=== PATIENT | female | born 1945 | race Caucasian/White ===

== ENCOUNTER 2017-11-07 10:25 | Emergency (ER) | payer OTHER ==
[~2017-11-07] VITALS: Ht 147.3 cm; Wt 90.3 kg
[~2017-11-07 10:25] MED LIST: GLUCOPHAGE XR500 MG; HYZAAR 100/25 T1 TAB; NABUMETONE750 MG PO; NEURONTIN250 MG/5 M; PLAVIX75 MG PO; SIMVASTATIN20 MG; SYNTHROID88 MCG
[2017-11-07] MEDS ORDERED: NEURONTIN800 MG (11:11)
[2017-11-07] MEDS ORDERED: DICLOFENAC SODI50 MG PO (14:30)
== END 2017-11-07 14:45 | disposition home or self-care (01) ==
LOC: ER 10:25
DX: M75.52 Bursitis of left shoulder (principal)

== ENCOUNTER 2020-02-13 15:48 | Emergency (ER) | payer OTHER ==
[~2020-02-13] VITALS: Ht 152.4 cm; Wt 79.4 kg
[~2020-02-13 15:48] MED LIST changes: +DICLOFENAC SODI50 MG PO; +NEURONTIN800 MG
== END 2020-02-13 18:06 | disposition home or self-care (01) ==
LOC: ER 15:48
DX: M51.26 Other intervertebral disc displacement, lumbar region (principal); M62.830 Muscle spasm of back

== ENCOUNTER 2020-07-10 09:39 | Emergency (ER) | payer OTHER ==
[~2020-07-10] VITALS: Ht 147.3 cm; Wt 90.7 kg
== END 2020-07-10 13:24 | disposition home or self-care (01) ==
LOC: ER 09:39
DX: K29.00 Acute gastritis without bleeding (principal)

== ENCOUNTER 2020-08-23 01:43 | Emergency (ER) | payer OTHER ==
[~2020-08-23] VITALS: Ht 147.3 cm; Wt 90.7 kg
[2020-08-23] MEDS ORDERED: PREDNISONE20 MG PO (13:48)
[2020-08-23] MEDS ORDERED: PERCOCET 5-3251 EACH PO (13:48)
== END 2020-08-23 14:14 | disposition home or self-care (01) ==
LOC: ER 01:43
DX: M48.27 Kissing spine, lumbosacral region (principal); M51.37 Other intervertebral disc degeneration, lumbosacral region; M48.07 Spinal stenosis, lumbosacral region; M54.5 Low back pain

== ENCOUNTER 2020-11-17 12:17 | Emergency (ER) | payer OTHER ==
[~2020-11-17] VITALS: Ht 147.3 cm; Wt 90.7 kg
[~2020-11-17 12:17] MED LIST changes: +PERCOCET 5-3251 EACH PO; +PREDNISONE20 MG PO
[2020-11-17] MEDS ORDERED: AMOX-CLAV 875-1 EACH PO (14:35)
== END 2020-11-17 14:39 | disposition home or self-care (01) ==
LOC: ER 12:17
DX: S80.02XA Contusion of left knee, initial encounter (principal); W18.09XA Striking against other object with subsequent fall, initial encounter; Y93.89 Activity, other specified; Y92.098 Other place in other non-institutional residence as the place of occurrence of the external cause; Y99.8 Other external cause status

== ENCOUNTER 2021-02-14 06:26 | Emergency (ER) | payer OTHER ==
[~2021-02-14] VITALS: Ht 147.3 cm; Wt 93.0 kg
[~2021-02-14 06:26] MED LIST changes: +AMOX-CLAV 875-1 EACH PO
[2021-02-14] MEDS ORDERED: HYDROCHLOROTH12.5 MG PO (06:49)
[2021-02-14] MEDS ORDERED: SIMVASTATIN5 MG PO (06:49)
[2021-02-14] MEDS ORDERED: KETO10TA2 PO (11:23)
[2021-02-14] MEDS ORDERED: NORFLEX100MG PO (11:23)
== END 2021-02-14 11:34 | disposition home or self-care (01) ==
LOC: ER 06:26
DX: M54.2 Cervicalgia (principal)

== ENCOUNTER 2021-02-28 22:24 | Emergency (ER) | payer OTHER ==
[~2021-02-28] VITALS: Ht 149.9 cm; Wt 95.3 kg
[~2021-02-28 22:24] MED LIST changes: +HYDROCHLOROTH12.5 MG PO; +KETO10TA2 PO; +NORFLEX100MG PO; +SIMVASTATIN5 MG PO
[2021-02-28] MEDS ORDERED: DICLOFENAC SODI75 MG PO (23:07)
[2021-02-28] MEDS ORDERED: NORFLEX100MG PO (23:07)
== END 2021-02-28 23:32 | disposition home or self-care (01) ==
LOC: ER 22:24
DX: M54.59 Other low back pain (principal)

== ENCOUNTER 2021-10-03 11:28 | Emergency (ER) | payer OTHER ==
[~2021-10-03] VITALS: Ht 147.3 cm; Wt 90.7 kg
[~2021-10-03 11:28] MED LIST changes: +DICLOFENAC SODI75 MG PO
[2021-10-03] MEDS ORDERED: HYZAAR 50-12.51 EACH PO (11:44)
[2021-10-03] MEDS ORDERED: NORFLEX100MG PO (15:39)
[2021-10-03] MEDS ORDERED: IBU800 MG PO (15:39)
== END 2021-10-03 15:57 | disposition home or self-care (01) ==
LOC: ER 11:28
DX: M54.9 Dorsalgia, unspecified (principal); I10 Essential (primary) hypertension; E11.9 Type 2 diabetes mellitus without complications; Z79.84 Long term (current) use of oral hypoglycemic drugs; E03.9 Hypothyroidism, unspecified; M43.16 Spondylolisthesis, lumbar region

== ENCOUNTER 2022-09-27 21:33 | Emergency (ER) | payer OTHER ==
[~2022-09-27] VITALS: Ht 152.4 cm; Wt 81.6 kg
[~2022-09-27 21:33] MED LIST changes: +HYZAAR 50-12.51 EACH PO; +IBU800 MG PO
== END 2022-09-28 00:19 | disposition home or self-care (01) ==
LOC: ER 21:33
DX: M54.89 Other dorsalgia (principal)
CPT/HCPCS: 96372; 99283; J1885; J2360

== ENCOUNTER 2024-01-24 19:03 | Emergency (ER) | payer OTHER ==
[~2024-01-24] VITALS: Ht 147.3 cm; Wt 81.6 kg
[2024-01-24] MEDS ORDERED: ORPHENADRINE CITRATE 30 MG/ML AMPUL IM ONE (19:45)
[2024-01-24] MEDS ORDERED: KETOROLAC TROMETHAMINE 30 MG VIAL IM ONE (19:45)
[2024-01-24] MEDS ORDERED: TRAMADOL HCL 50 MG TABLET PO ONE (19:45)
[2024-01-24] MEDS ORDERED: GABAPENTIN 100 MG CAPSULE PO ONE (19:45)
== END 2024-01-24 21:59 | disposition home or self-care (01) ==
LOC: ER 19:05
DX: M54.89 Other dorsalgia (principal); E11.9 Type 2 diabetes mellitus without complications; Z79.84 Long term (current) use of oral hypoglycemic drugs; I10 Essential (primary) hypertension

== ENCOUNTER 2024-07-25 09:05 | Emergency (ER) | payer OTHER ==
[~2024-07-25] VITALS: Ht 147.3 cm; Wt 83.0 kg
[2024-07-25] MEDS ORDERED: KETOROLAC TROMETHAMINE 60 MG VIAL IM STA (10:54)
[2024-07-25] MEDS ORDERED: KETOROLAC TROMETHAMINE 60 MG VIAL IM ONE (10:57)
== END 2024-07-25 13:55 | disposition home or self-care (01) ==
LOC: ER 09:13
DX: U07.1 COVID-19 (principal); G43.909 Migraine, unspecified, not intractable, without status migrainosus